=== PATIENT | female | born 1960 | race African-American/Black ===

== ENCOUNTER 2016-11-10 17:02 | Emergency (ER) | payer MEDICAID ==
[~2016-11-10] VITALS: Ht 167.6 cm; Wt 68.0 kg
[2016-11-10] MEDS ORDERED: ASPI-1159 PO (17:22)
[2016-11-10 18:20] VITALS: BP 113/72
[2016-11-10 19:51] LABS: BASOPHILS % 0.5 % (0.0-2.0); HEMATOCRIT. 37.2 % (36.0-48.0); HEMOGLOBIN. 12.3 g/dL (12.0-16.0); LYMPHOCYTES % 18.4 % (20.0-50.0); MEAN CORPUSCULAR HEMOGLOBIN 29.9 pg (28.0-32.0); MEAN CORPUSCULAR VOLUME 90.3 fL (81.0-99.0); MEAN PLATELET VOLUME 9.9 fl (7.4-10.4); MONOCYTES % 5.3 % (2.0-8.0); NEUTROPHILS % 73.8 % (40.0-76.0); PLATELET 260 x1000/uL (130-400); RED BLOOD CELL COUNT 4.12 mill/uL (4.2-5.4); RED CELL DISTRIBUTION WIDTH 13.6 % (11.6-14.6)
[2016-11-10 20:03] LABS: CARBON DIOXIDE 32 mEq/L (21-32); CHLORIDE 106 mEq/L (98-107)
== END 2016-11-10 20:30 | disposition home or self-care (01) ==
LOC: ER 17:02
DX: R20.8 Other disturbances of skin sensation (principal); M54.2 Cervicalgia; M79.89 Other specified soft tissue disorders; Z79.82 Long term (current) use of aspirin; Z87.828 Personal history of other (healed) physical injury and trauma
CPT/HCPCS: 36415; 80048; 85025; 99284; Z7610

== ENCOUNTER 2022-01-01 02:58 | Emergency (ER) | payer MEDICAID ==
[~2022-01-01] VITALS: Ht 167.6 cm; Wt 63.2 kg
[~2022-01-01 02:58] MED LIST: ASPI-1497 PO
[2022-01-01 03:10] VITALS: BP 111/75
== END 2022-01-01 08:49 | disposition home or self-care (01) ==
LOC: ER 02:58
DX: S09.90XA Unspecified injury of head, initial encounter (principal); Z88.0 Allergy status to penicillin; X58.XXXA Exposure to other specified factors, initial encounter; Y93.89 Activity, other specified; Y92.89 Other specified places as the place of occurrence of the external cause; Y99.8 Other external cause status
CPT/HCPCS: 99284

== ENCOUNTER 2023-11-08 23:21 | Emergency (ER) | payer MEDICAID, OTHER ==
[~2023-11-08] VITALS: Ht 167.6 cm; Wt 84.0 kg
[2023-11-08 23:42] VITALS: BP 132/88; PULSE 78; RESP 16; TEMP 98; O2SAT 98
[2023-11-09] MEDS ORDERED: LORAZEPAM 0.5MG TABLET PO ONE
[2023-11-09 00:15] LABS: BASOPHILS % 0.6 % (0.0-2.0); EOSINOPHILS % 4.5 % (0.0-5.0); HEMATOCRIT. 40.8 % (36.0-48.0); HEMOGLOBIN. 13.4 g/dL (12.0-16.0); LYMPHOCYTES % 11.5 % (20.0-50.0); MEAN CORPUSCULAR HEMOGLOBIN 30.6 pg (28.0-32.0); MEAN CORPUSCULAR HGB CONC 32.8 g/dL (31.0-37.0); MEAN CORPUSCULAR VOLUME 93.2 fL (81.0-99.0); MEAN PLATELET VOLUME 10.4 fl (7.4-10.4); MONOCYTES % 8.8 % (2.0-8.0); NEUTROPHILS % 74.6 % (40.0-76.0); PLATELET 242 x1000/uL (130-400); RED BLOOD CELL COUNT 4.38 mill/uL (4.2-5.4); RED CELL DISTRIBUTION WIDTH 14.3 % (11.6-14.6); WHITE BLOOD COUNT 6.4 x1000/uL (4.5-11.0)
[2023-11-09 00:16] LABS: CHLORIDE 108 mEq/L (98-107); POTASSIUM 3.5 mEq/L (3.5-5.1); SODIUM 141 mEq/L (136-145)
[2023-11-09 00:17] LABS: CALCIUM 9.2 mg/dL (8.7-10.4); CARBON DIOXIDE 28 mEq/L (21-32)
[2023-11-09 00:22] LABS: CREATININE 0.9 mg/dL (0.6-1.0); GLUCOSE 97 mg/dL (70-105); UREA NITROGEN BLOOD 12 mg/dL (9-23)
[2023-11-09 00:31] LABS: TROPONIN I HIGH SENSITIVITY < 4 ng/L (3.0-34)
[2023-11-09] MEDS: LORAZEPAM 0.5MG TABLET PO NR (02:30)
[2023-11-09] MEDS ORDERED: IBUP-2028 MT (02:49)
== END 2023-11-09 03:33 | disposition home or self-care (01) ==
LOC: ER 23:21
DX: R07.89 Other chest pain (principal); R06.02 Shortness of breath; J45.909 Unspecified asthma, uncomplicated; Z88.0 Allergy status to penicillin
CPT/HCPCS: 80048; 85025; 84484; 36415; 71046; 93005; 99285; Z7610 ×3

== ENCOUNTER 2024-05-26 08:57 | Emergency (ER) | payer MEDICAID, OTHER ==
[~2024-05-26] VITALS: Ht 162.6 cm; Wt 55.0 kg
[~2024-05-26 08:57] MED LIST changes: +IBUP-2028 MT
[2024-05-26 08:58] VITALS: O2SAT 100
[2024-05-26 09:53] LABS: CLARITY URINE CLEAR (CLEAR); COLOR URINE YELLOW (YELLOW); GLUCOSE URINE NEGATIVE (NEGATIVE); KETONES URINE NEGATIVE (NEGATIVE); LEUKOCYTE ESTERASE URINE 1+ (NEGATIVE); NITRITE URINE NEGATIVE (NEGATIVE); OCCULT BLOOD URINE NEGATIVE (NEGATIVE); PROTEIN URINE NEGATIVE (NEGATIVE); SPECIFIC GRAVITY URINE 1.013 (1.005-1.030); UROBILINOGEN URINE 0.2 E.U./dL (0.2-1.0)
[2024-05-26 09:57] LABS: BASOPHILS % 0.6 % (0.0-2.0); DIFFERENTIAL COMMENT 0; HEMATOCRIT. 39.9 % (36.0-48.0); HEMOGLOBIN. 13.3 g/dL (12.0-16.0); MEAN CORPUSCULAR HGB CONC 33.2 g/dL (31.0-37.0); MEAN CORPUSCULAR VOLUME 93.3 fL (81.0-99.0); MONOCYTES % 4.8 % (2.0-8.0); NEUTROPHILS % 74.6 % (40.0-76.0); PLATELET 256 x1000/uL (130-400); RED BLOOD CELL COUNT 4.28 mill/uL (4.2-5.4); RED CELL DISTRIBUTION WIDTH 13.8 % (11.6-14.6); WHITE BLOOD COUNT 5.8 x1000/uL (4.5-11.0)
[2024-05-26 10:08] LABS: CHLORIDE 104 mEq/L (98-107); POTASSIUM 3.7 mEq/L (3.5-5.1); SODIUM 142 mEq/L (136-145)
[2024-05-26 10:09] LABS: CALCIUM 9.7 mg/dL (8.7-10.4); CARBON DIOXIDE 28 mEq/L (21-32)
[2024-05-26 10:11] LABS: PROTHROMBIN TIME 10.3 sec (9.6-11.0)
[2024-05-26 10:14] LABS: CREATININE 0.9 mg/dL (0.6-1.0); GLUCOSE 73 mg/dL (70-105); UREA NITROGEN BLOOD 12 mg/dL (9-23)
[2024-05-26 10:19] VITALS: TEMP 36.7; O2SAT 100
[2024-05-26 10:30] LABS: TROPONIN I HIGH SENSITIVITY < 4 ng/L (3.0-34)
[2024-05-26] MEDS: IOHEXOL-350 100 ML BOTTLE ONE (11:12)
[2024-05-26 11:28] VITALS: BP 155/83; PULSE 50; RESP 20; TEMP 98.06
[2024-05-26] MEDS ORDERED: ASPIRIN 325MG EC TABLET PO ONE (11:30)
[2024-05-26 11:32] LABS: SQUAMOUS EPITHELIAL CELL URINE 1+ /lpf (RARE/1+)
[2024-05-26 11:33] LABS: RBC URINE NONE SEEN /hpf (0-2)
[2024-05-26 11:34] LABS: BACTERIA URINE TRACE
== END 2024-05-26 12:36 | disposition left against medical advice (07) ==
LOC: ER 08:57
DX: I63.9 Cerebral infarction, unspecified (principal); J45.909 Unspecified asthma, uncomplicated; Z86.73 Personal history of transient ischemic attack (TIA), and cerebral infarction without residual deficits; Z88.0 Allergy status to penicillin
CPT/HCPCS: 99291; 70496; 71045; 80048; 81003; 85025; 85610; 84484; 36415; 70498; 70450; Q9967